=== PATIENT | male | born 1955 | race Caucasian/White ===

== ENCOUNTER 2018-08-15 06:42 | Day surgery (SDC) | payer OTHER, SELFPAY ==
[2018-08-15] VITALS (7 sets, daily range): BP systolic 106–149; BP diastolic 72–92; PULSE 48–54; RESP 12–16; TEMP 36.3–36.9; O2SAT 94–99; BMI 34.0
[2018-08-15] MEDS: LACTATED RINGERS 1,000 ML 42 ML IV (07:25)
--- NOTE | 2018-08-15 07:27 | PM.HP.1 ---
History of Present Illness Date Patient Seen: 08/15/18 Time Patient Seen: 07:27 Chief complaint: OPEN UMBILICAL HERNIA [id number] Narrative: 62-year-old male seen June 28, 2018 for symptomatic umbilical mass consistent with hernia. Mass remains unchanged since that evaluation. He is once again seen and examined today in the preoperative area. Continues to have difficulty with protruding mass at the umbilicus especially with strenuous activity. Lesion will spontaneously reduce when he is resting and in a supine position. He gives no history of incarceration at any time. Continues to have difficulty with his activities of daily living due to the pain and discomfort related to the mass. No nausea, vomiting, fever, chills, abdominal pain elsewhere, dysuria, hematuria, or difficulties with bowel function. Patient History Family & Social History Social History: household members spouse Tobacco & Substance use: Smoking Status Never smoker alcohol intake current Meds Home Medications Medication Instructions Recorded Confirmed Type aspirin 81 mg PO QDAY #0 11/22/12 08/15/18 History atenolol 75 mg PO QDAY #0 11/22/12 08/15/18 History fluoxetine [Prozac] 20 mg PO QDAY #0 11/22/12 08/15/18 History losartan 100 mg PO QDAY #0 11/22/12 08/15/18 History amlodipine 10 mg tablet 10 mg PO DAILY 06/28/18 08/15/18 History multivitamin with minerals-folic 1 tab PO DAILY tab 06/28/18 08/15/18 History acid 0.4 mg tablet Allergies Allergy/AdvReac Type Severity Reaction Status Date / Time Penicillins Allergy Unknown Hives Verified 08/15/18 06:59 Review of Systems Review of Systems All systems reviewed & are unremarkable except as noted in HPI and below Exam Vital Signs (past 8 hours): - 08/15/18 07:17 Temperature 97.6 F Pulse Rate 50 L Respiratory Rate 16 Blood Pressure 149/92 H Pulse Oximetry 94 Oxygen Delivery Method Room Air Narrative Exam Narrative: Well-nourished well-developed moderately obese male in no acute distress. Alert oriented x3 Sclera nonicteric Chest clear to auscultation. Regular rate and rhythm. No crackles or wheezes. Abdomen is obese but soft and nondistended. Nontender. Reducible umbilical hernia is again demonstrated. No ascites. No hepatomegaly. Extremities show no clubbing or cyanosis Objective Labs Labs: No new laboratory or radiographic studies for review Assessment & Plan Assessment & Plan narrative: 62-year-old male with symptomatic reducible umbilical hernia. Reiterated recommendation for open umbilical hernia repair, possibly with mesh. Technical details again reviewed. Risks, benefits, alternatives also discussed once again at as previously documented. Consent is on the chart. Otherwise his history and physical examination has not changed since his initial evaluation of June 28, 2018. We will proceed today with open umbilical hernia repair as planned. All questions were answered to his satisfaction, and he voiced understanding.
--- NOTE | 2018-08-15 07:29 | PM.PREOP ---
Pre-operative Note Interval Note History & Physical reviewed/Exam performed by Physician: Yes Changes to H&P: No H&P completed within 30 days and has changed as indicated here:: Patient seen and examined again today. History and physical examination from June 28, 2018 updated and placed on the chart. Obviously no changes within the last hour. Proceed today with umbilical hernia repair as planned
[2018-08-15] MEDS: CEFAZOLIN 2 GM/100 ML FROZ.PIGGY IV (07:32)
--- NOTE | 2018-08-15 07:55 | SUR.OPER ---
Supine on padded OR bed, head on pillow, arms secured on padded arm boards at <90 degrees abduction, legs uncrossed, safety belt at thigh, tape over blanket over lower legs.
[2018-08-15] MEDS: LIDOCAINE 1% W/EPI INJ 20 ML INJ (08:05)
[2018-08-15] MEDS: BUPIVACAINE 0.5% (PF) VIAL 30 ML INJ (08:05)
--- NOTE | 2018-08-15 08:42 | P.OP_ITS ---
Operative Date/Time/Diagnoses Date of procedure: 08/15/18 Time of procedure: 08:38 Pre-op diagnosis: Symptomatic umbilical hernia Post-op diagnosis: same Procedure & Clinicians Procedure: Open umbilical hernia repair with primary closure Same procedure as scheduled: Yes Indications: 62-year-old male who presented with symptomatic umbilical hernia. Open repair possibly with mesh was recommended. Surgeon: Jose Maurer Click Yes if Unassisted: Yes Anesthesia Type: General Operative Notes Findings: 1. Umbilical hernia measuring no more than 1 cm in greatest dimension with minimal amount of incarcerated preperitoneal fat subsequently reduced 2. Adequate primary closure of the umbilical hernia defect using 2 individual 0 Ethibond sutures Closure Type: primary Specimen(s): none sent Prosthetic devices, grafts, tissues, transplants, or devices: None Estimated Blood Loss (mL): 5 Blood products transfused: none Procedure in detail: After obtaining informed consent the patient was brought to the operating room placed supine on the table. After satisfactory induction of anesthesia the abdomen was prepped and draped in usual sterile fashion. SCOAP time out was performed per standard protocol. Curvilinear incision was designed along the inferior aspect of the umbilicus then infiltrated with a 1-1 mixture 1% lidocaine with 1: 100,000 epinephrine and 0.5% plain Marcaine for postoperative analgesia. Skin incision was created with 15 scalpel blade. Sharp dissection using Metzenbaum scissors was employed to carry the dissection through the subcutaneous tissue to the rectus fascia. Bovie was used to achieve hemostasis. Hernia sac was then encircled with a hemostat and the umbilical skin was reflected off the hernia sac sharply with Metzenbaum scissors. A Weitlaner retractor was used to provide exposure. Hernia sac was dissected away sharply with Metzenbaum scissors and discarded. Bovie was used to achieve hemostasis taking great care to avoid injury to abdominal structures. Preper itoneal fat was then reduced and the hernia defect was fully visualized. There were no satellite hernias. Given the small size of the defect mesh was not indicated. Therefore the defect was closed with 2 individual 0 Ethibond sutures. Wound was irrigated and noted to be hemostatic. Umbilical skin was closed in a concave fashion with a single 3 0 Vicryl suture. Subcutaneous tissue was reapproximated with interrupted 3 0 Vicryl suture. Skin was closed with running 4 0 Monocryl suture in a subcuticular fashion. Dermal adhesive was applied. Anesthesia was reversed and patient extubated in the operating room. He was taken recovery in stable condition. Complications: none Condition: stable Disposition: PACU Plan for aftercare: 1. Discharge home 2. Follow up in surgery Clinic in 2 weeks
[2018-08-15] MEDS: OXYCODONE/ACETAMINOPHEN 5/325 TABLET 1 TAB PO (08:49)
--- NOTE | 2018-08-15 09:15 | SUR.PHASEII ---
0915 AO, stable, no dizziness, lightedness, nausea. Stable on feet. ice pack home with patient. Resp unlabored, skin warm and dry.
== END 2018-08-15 09:15 | disposition home or self-care (01) ==
PROVIDERS: Family Provider Family Medicine; PCP Family Medicine; Visit Provider Surgery
PROC: (CPT 49585; principal; 2018-08-15 07:45)
DX: K42.0 Umbilical hernia with obstruction, without gangrene (principal)
CPT/HCPCS: 49585; J0690; J1100; J2250; J2704; J3010

== ENCOUNTER → 2018-11-09 10:18 | Outpatient (CLI) | payer OTHER, SELFPAY ==
--- NOTE | 2018-11-09 | DI.RAD.S_ITS ---
PROCEDURE: XR FOOT LT MIN 3V INDICATIONS: Left foot pain TECHNIQUE: 3 views of the foot were acquired. COMPARISON: None. FINDINGS: Bones: No fractures or dislocations but there is an unusually large lateral sesamoid bone beneath the lateral border of the first metatarsal head. This measures up to 2.6 cm in longitudinal dimension. Also on the oblique view is an exostosis projecting laterally and inferiorly from the lateral aspect of the base of the first proximal phalanx. Degenerative osteoarthritis at the first MTP joint is present. Note is made of what appears to be an old avulsion fragment or unusual accessory ossicle measuring 6 mm in maximal dimension adjacent to the lateral base of the second proximal phalanx. No suspicious bony lesions that would indicate presence of acute trauma. Soft tissues: No tibiotalar joint effusion. Achilles tendon appears normal. IMPRESSION: Osseous findings as discussed above but no acute trauma. Incidental mode is also made of a moderate-sized plantar fascial insertion spur at the posterior calcaneus. Dictated by: Eze Jones M.D. on 11/09/2018 at 10:56 Approved by: Eze Jones M.D. on 11/09/2018 at 11:00
== END ==
PROVIDERS: PCP Family Medicine; Visit Provider Family Medicine
DX: M79.672 Pain in left foot (principal); M19.072 Primary osteoarthritis, left ankle and foot; M77.32 Calcaneal spur, left foot
CPT/HCPCS: 73630

== ENCOUNTER → 2020-02-19 08:18 | Outpatient (CLI) | payer OTHER, SELFPAY ==
--- NOTE | 2020-02-19 | DI.RAD.S_ITS ---
PROCEDURE: XR CHEST 2V INDICATIONS: CHRONIC COUGH TECHNIQUE: 2 views of the chest were acquired. COMPARISON: [facility], CT, THORAX WITHOUT CONTRAST, 06/04/2013, 9:51. [facility], CR, CHEST 2 VIEW, 01/15/2014, 11:11. [facility], CR, CHEST 2 VIEW, 09/19/2013, 6:59. FINDINGS: Surgical changes and devices: ACDF. Lungs and pleura: Lungs are clear. No pleural effusions or pneumothorax. Mediastinum: Mediastinal contours are normal. Heart size is normal. Bones and chest wall: No suspicious bony abnormalities. Soft tissues appear unremarkable. IMPRESSION: No acute cardiopulmonary abnormality. Dictated by: Brandin Still M.D. on 02/19/2020 at 8:18 Approved by: Brandin Still M.D. on 02/19/2020 at 8:19
== END ==
PROVIDERS: PCP Family Medicine; Referring Provider Family Medicine; Visit Provider Family Medicine
DX: R05 Cough (principal)
CPT/HCPCS: 71046

== ENCOUNTER → 2020-02-19 08:25 | Outpatient (CLI) | payer OTHER, SELFPAY ==
[2020-02-20 10:34] LABS: COVID19 Sendout Not Detected (Not Detect)
== END ==
PROVIDERS: PCP Family Medicine; Visit Provider Nurse Practitioner
DX: Z11.59 Encounter for screening for other viral diseases (principal)
CPT/HCPCS: 87635

== ENCOUNTER → 2020-02-20 10:04 | Outpatient (CLI) | payer OTHER, SELFPAY ==
--- NOTE | 2020-02-20 10:05 | DI.CT.S_ITS ---
PROCEDURE: CT SINUS SCREEN WO CON INDICATIONS: Sinusitis TECHNIQUE: Noncontrast 3.0 mm axial images acquired from the frontal sinuses to the mid-sella, with coronal and sagittal reformats. For radiation dose reduction, the following was used: automated exposure control, adjustment of mA and/or kV according to patient size. COMPARISON: None. FINDINGS: Image quality: Excellent. Maxillary Sinuses: No bony remodeling or destruction. Left maxillary sinus retention cyst. Sinuses are otherwise clear. Ethmoid Air Cells: No bony remodeling or destruction. Sinuses are clear. Sphenoid Sinuses: No bony remodeling or destruction. Sinuses are clear. Frontal Sinuses: No bony remodeling or destruction. Sinuses are clear. Ostiomeatal Complexes: Ostiomeatal complexes are patent. No Larisa cells. Miscellaneous: Visualized intra-orbital contents are normal. No brannon bullosa. There is paradoxical curvature of the bilateral middle turbinates.. No nasal septal deviation. IMPRESSION: 1. Left maxillary sinus retention cyst. Mild right maxillary sinus mucosal thickening. 2. Paradoxical curvature of the middle turbinates bilaterally. Dictated by: James Verdin M.D. on 02/20/2020 at 10:22 Approved by: James Verdin M.D. on 02/20/2020 at 10:23
== END ==
PROVIDERS: PCP Family Medicine; Referring Provider Family Medicine; Visit Provider Family Medicine
DX: J32.9 Chronic sinusitis, unspecified (principal); J34.1 Cyst and mucocele of nose and nasal sinus
CPT/HCPCS: 70486

== ENCOUNTER 2020-02-22 12:35 | Day surgery (SDC) | payer OTHER, SELFPAY ==
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
--- NOTE | 2020-02-22 11:40 | PM.OP.ENDO ---
Operative Date/Time/Diagnoses Date of procedure: 02/22/20 Procedure Notes SCOAP/Timeout: 13:40 Procedure in detail: ENDOSCOPIST: Natlaya Bass MD Sedation RN: Shae Cameron RN Sedation start time: 3:41 p.m. Sedation end time: 3:57 p.m. PROCEDURE: Colonoscopy INDICATIONS: 1. Family history of cancer 2. History of bright red bleeding per rectum 3. History of hemorrhoids 4. Screening for colon cancer MEDICATION: Levsin 0.125 mg sublingual, incremental doses of Versed and fentanyl until appropriate level sedation achieved. ASA CLASS: 2 CECAL WITHDRAWAL TIME: 8 minutes COMPLICATIONS: None. EXTENT OF PROCEDURE: Cecum. QUALITY OF PREP: Good with portions of liquid stool. PROCEDURE: Prior to insertion of the colonoscope, a digital rectal examination was accomplished with circumferential palpation of the distal rectal mucosa without significant findings being noted. The high-definition colonoscope was passed into the rectum in the usual fashion and advanced over to the cecum without difficulty. The ileocecal valve, appendiceal stoma, and medial wall all could be inspected and no abnormalities were seen. ASCENDING COLON: As the colonoscope was withdrawn, care was taken to expose and inspect the haustral folds and no abnormalities were seen. HEPATIC FLEXURE: Normal, no polyps, diverticula or other abnormalities. TRANSVERSE COLON: Normal, no polyps, diverticula or other abnormalities. DESCENDING COLON: Normal, no polyps, diverticula or other abnormalities. SIGMOID COLON: Normal, no polyps, diverticula or other abnormalities. RECTUM: Normal. J maneuver was produced. There was no significant perianal disease. The J maneuver was broken. The remainder of the rectum was inspected and there was external hemorrhoid disease. The scope was withdrawn. IMPRESSION: 1. Normal colonoscopy 2. External hemorrhoids PLAN: 1. Repeat colonoscopy in 10 years. The possibility of a missed lesion including a malignancy has been discussed with the patient previously. Potential alarm symptoms have been discussed and should be reported immediately.
[2020-02-22] MEDS: HYOSCYAMINE 0.125 MG TABLET PO (12:49)
[2020-02-22] MEDS: LACTATED RINGERS 1,000 ML 200 ML IV (12:49)
[2020-02-22 12:56] VITALS: BP 153/92; PULSE 65; RESP 16; TEMP 36.5; O2SAT 99; BMI 33.4
[2020-02-22] MEDS: fentaNYL 250 MCG/5 ML INJ IV (13:41)
[2020-02-22] MEDS: MIDAZOLAM 5 MG/5 ML VIAL IV ×3 (13:41→13:44)
[2020-02-22 14:05] VITALS: BP 129/95; PULSE 78; RESP 15; TEMP 36.6; O2SAT 94
[2020-02-22 14:10] VITALS: BP 138/97; PULSE 65; RESP 16; O2SAT 11
[2020-02-22 14:15] VITALS: BP 136/93; PULSE 66; RESP 15; O2SAT 95
--- NOTE | 2020-02-22 14:15 | SUR.PHASEI ---
pt transferred to [facility]. pt in stable condition, marguerite.
--- NOTE | 2020-02-22 14:16 | SUR.PHASEI ---
Assumed care of pt from Marielle Valdes RN. pt awake and alert eating crackers. Denies any complaints and denies any nausea.
[2020-02-22 14:19] VITALS: BP 131/96; PULSE 62; RESP 12; O2SAT 95
[2020-02-22 14:21] VITALS: BP 114/79; PULSE 60; RESP 14; TEMP 35.7; O2SAT 94
== END 2020-02-22 14:35 | disposition home or self-care (01) ==
PROVIDERS: PCP Family Medicine; Referring Provider Family Medicine; Visit Provider Student in an Organized Health Care Education/Training Program
PROC: 0DJD8ZZ Inspection of Lower Intestinal Tract, Via Natural or Artificial Opening Endoscopic (ICD-10-PCS; CPT 45378; principal; 2020-02-22 13:45)
DX: Z12.11 Encounter for screening for malignant neoplasm of colon (principal); I10 Essential (primary) hypertension; F32.9 Major depressive disorder, single episode, unspecified; E78.5 Hyperlipidemia, unspecified
CPT/HCPCS: 45378; J2250; J3010

== ENCOUNTER → 2020-08-28 17:02 | Outpatient (CLI) | payer OTHER, SELFPAY ==
[2020-08-28] MEDS: COVID-19 VACC, Ad26(JANSSEN)/PF 0.5 ML IM (17:20)
== END ==
PROVIDERS: PCP Family Medicine; Visit Provider Internal Medicine
DX: Z23 Encounter for immunization (principal)
CPT/HCPCS: 0031A; 91303

== ENCOUNTER → 2020-11-25 10:16 | Outpatient (CLI) | payer OTHER, SELFPAY ==
--- NOTE | 2020-11-25 10:18 | DI.RAD.S_ITS ---
PROCEDURE: XR CERVICAL SPINE 4V OR 5V INDICATIONS: NECK PAIN WITH RADICULOPATHY TECHNIQUE: 5 views of the cervical spine were acquired. COMPARISON: [facility], CR, XR CHEST 2V, 02/19/2020, 8:17. CT, THORAX WITHOUT CONTRAST, 06/04/2013, 9:51. FINDINGS: Bones: No fractures or dislocations to the T1 level. No suspicious bony lesions. There is normal range of motion between flexion and extension, with preserved normal bony alignment. Anterior C5 through C7 fusion plate showing no evidence of device loosening or disruption. Soft tissues: Prevertebral soft tissues are normal in thickness. IMPRESSION: No evidence of instability during flexion and extension imaging, prior C5 through C7 anterior fusion plate appears stable over time. Dictated by: Eze Jones M.D. on 11/25/2020 at 12:32 Approved by: Eze Jones M.D. on 11/25/2020 at 12:34
--- NOTE | 2020-11-25 10:18 | DI.RAD.S_ITS ---
PROCEDURE: XR THORACIC SPINE 2V INDICATIONS: NECK PAIN WITH RADICULOPATHY TECHNIQUE: 2 views of the thoracic spine were acquired. COMPARISON: None. FINDINGS: Bones: No fractures or dislocations. No suspicious bony lesions. Twelve pairs of ribs are noted, and appear intact where visualized. Mild degenerative disc height reduction along the middle and lower thirds of the thoracic spine. Soft tissues: No paravertebral stripe thickening. IMPRESSION: No trauma found, no acute disease. Mild degenerative disc height reduction along the middle and lower thirds of the thoracic spine. Dictated by: Eze Jones M.D. on 11/25/2020 at 10:58 Approved by: Eze Jones M.D. on 11/25/2020 at 10:59
== END ==
PROVIDERS: PCP Family Medicine; Referring Provider Family Medicine; Visit Provider Family Medicine
DX: M54.12 Radiculopathy, cervical region (principal); M51.34 Other intervertebral disc degeneration, thoracic region
CPT/HCPCS: 72050; 72070

== ENCOUNTER → 2021-12-17 13:02 | Outpatient (CLI) | payer OTHER, SELFPAY ==
--- NOTE | 2021-12-17 | DI.CT.S_ITS ---
PROCEDURE: CT CHEST W CON INDICATIONS: Chronic cough TECHNIQUE: After the administration of intravenous contrast, 5 mm thick sections acquired from the pulmonary apices to the posterior costophrenic angles. 1 mm axial lung, 5 mm thick coronal and sagittal reformats and 7 mm axial MIP were acquired. For radiation dose reduction, the following was used: automated exposure control, adjustment of mA and/or kV according to patient size. COMPARISON: [facility], CT, THORAX WITHOUT CONTRAST, 06/04/2013, 9:51. FINDINGS: Image quality: Excellent. Lungs and pleura: No acute air space opacities. There is linear platelike scarring in the left lower lobe likely secondary to a pneumonia seen on prior CT in 2012. No pleural effusions or pneumothorax. Central and peripheral airways are patent and normal in caliber. Mediastinum: Heart size is normal. No pericardial effusion. No mediastinal or hilar adenopathy by size criteria. Thoracic aorta and central pulmonary arteries are normal in size. Esophagus is normal in caliber. No hiatal hernia. Bones and chest wall: No suspicious bony lesions. No vertebral body compression fractures. No axillary or supraclavicular adenopathy by size criteria. Thyroid gland is normal. Abdomen: The liver is heterogenous. There are hypodensities which demonstrate density consistent with cysts measuring 4.0 cm in the right lobe and 2.4 and 1.8 cm in the left lobe. There is a 4.4 centimeter apparent mass in the right renal fossa, however it is possible this could be the top of the right kidney but is incompletely visualized. IMPRESSION: 1. No acute abnormality of the chest. 2. Platelike scarring in the left lower lobe. 3. Hepatic hypodensities are likely cysts. 4. Possible mass in the right renal fossa which appears to be a mass, however could possibly be the top of the right kidney. No prior imaging is available for comparison. Recommend CT of the abdomen and pelvis for further evaluation of these abnormalities. Dictated by: Dinesh Gonzalez M.D. on 12/17/2021 at 16:49 Approved by: Dinesh Gonzalez M.D. on 12/17/2021 at 17:00
[2021-12-17 13:28] LABS: BUN Creatinine Ratio 15.7 (6-22); Blood Urea Nitrogen 17 mg/dL (9-20); Estimated Glomerular Filt Rate > 60 mL/min (>60)
== END ==
PROVIDERS: PCP Family Medicine; Referring Provider Family Medicine; Visit Provider Family Medicine
DX: J98.4 Other disorders of lung (principal); R05.3 Chronic cough
CPT/HCPCS: 36415; 71260; 82565; 84520; Q9967

== ENCOUNTER → 2021-12-29 10:05 | Outpatient (CLI) | payer OTHER, SELFPAY ==
--- NOTE | 2021-12-29 10:13 | DI.CT.S_ITS ---
PROCEDURE: CT ABDOMEN PELVIS W CON INDICATIONS: MASS/DISORDER OF KIDNEY AND URETER TECHNIQUE: After the administration of oral and intravenous contrast, axial sections were acquired from the lung bases to the pubic symphysis. Coronal and sagittal reformats were performed. For radiation dose reduction, the following was used: automated exposure control, adjustment of mA and/or kV according to patient size. COMPARISON:[facility], CT, CT CHEST W CON, 12/17/2021, 13:39. FINDINGS: Image quality: Excellent. Lung bases: No pleural effusion. ABDOMEN: Liver: A few small cysts are present within the liver. There are also a few small hypodensities that are too small to characterize but which could represent additional cysts or hemangiomata. Gallbladder: No radiopaque gallstones. Biliary ducts: Unremarkable. Pancreas: Unremarkable. Spleen: Unremarkable. Adrenal Glands: Unremarkable. Kidneys and Ureters: Redemonstrated mass arising from the upper right kidney measuring approximately 4.6 x 4.3 by 4.3 cm (series 2, image 40 and series 5, image 63). The mass may encroach upon the renal sinus fat (series 4, image 44). No hydronephrosis. Stomach and Bowel: No evidence of mechanical small bowel obstruction. Peritoneum: No abnormal intraperitoneal fluid. No free air. Abdominal Nodes: No retroperitoneal or mesenteric adenopathy by size criteria. Vessels: Aorta and inferior vena cava are normal in size. No evidence of right renal vein tumor thrombus. PELVIS: Pelvic Organs: Unremarkable. Bladder: Unremarkable. Pelvic Nodes: No enlarged lymph nodes. Bones: Multilevel degenerative change of the visualized spine. IMPRESSION: 1. A 4.6 cm mass is present arising from the upper right kidney suspicious for neoplasm such as renal cell carcinoma. Urology consultation may be helpful to direct further management. 2. No definite evidence of metastatic disease identified within the abdomen or pelvis. Dictated by: Margarito Liz M.D. on 12/29/2021 at 13:20 Approved by: Margarito Liz M.D. on 12/29/2021 at 13:37
== END ==
PROVIDERS: PCP Family Medicine; Referring Provider Family Medicine; Visit Provider Family Medicine
DX: N28.89 Other specified disorders of kidney and ureter (principal); K76.89 Other specified diseases of liver
CPT/HCPCS: 74177

== ENCOUNTER → 2022-09-29 08:57 | Outpatient (CLI) | payer OTHER, SELFPAY ==
--- NOTE | 2022-09-29 09:07 | DI.RAD.S_ITS ---
PROCEDURE: XR SHOULDER RT MIN 2V INDICATIONS: BILATERAL SHOULDER PAIN TECHNIQUE: 3 views of the shoulder were acquired. COMPARISON: None. FINDINGS: Bones: No fractures or dislocations. No suspicious bony lesions. [id number] acromioclavicular and glenohumeral joint degeneration. Visualized ribs appear intact. Soft tissues: No suspicious soft tissue calcifications. IMPRESSION: [id number] degenerative joint disease. Dictated by: Rudy Robles M.D. on 09/29/2022 at 20:30 Approved by: Rudy Robles M.D. on 09/29/2022 at 20:30
--- NOTE | 2022-09-29 09:07 | DI.RAD.S_ITS ---
PROCEDURE: XR SHOULDER LT MIN 2V INDICATIONS: BILATERAL SHOULDER PAIN TECHNIQUE: 3 views of the shoulder were acquired. COMPARISON: None. FINDINGS: Bones: No fractures or dislocations. No suspicious bony lesions. Visualized ribs appear intact. Acromioclavicular joint space narrowing with associated osteophytosis. Soft tissues: No suspicious soft tissue calcifications. IMPRESSION: Mild acromioclavicular osteoarthritis. Dictated by: Caleb Jay M.D. on 09/29/2022 at 10:22 Approved by: Caleb Jay M.D. on 09/29/2022 at 10:22
--- NOTE | 2022-09-29 09:07 | DI.RAD.S_ITS ---
PROCEDURE: XR FOOT RT MIN 3V INDICATIONS: RIGHT FOOT PAIN TECHNIQUE: 3 views of the foot were acquired. COMPARISON: None. FINDINGS: Bones: No fractures or dislocations. No suspicious bony lesions. Moderate osteoarthritic changes in ankle and foot, most pronounced at the 1st metatarsophalangeal joint. Calcaneal spurring. Soft tissues: No tibiotalar joint effusion. Achilles tendon appears normal. IMPRESSION: 1. Moderate osteoarthritic changes, most pronounced at the 1st metatarsophalangeal joint. 2. Calcaneal spurring. Dictated by: Rudy Robles M.D. on 09/29/2022 at 20:31 Approved by: Rudy Robles M.D. on 09/30/2022 at 7:59
== END ==
PROVIDERS: PCP Family Medicine; Referring Provider Family Medicine; Visit Provider Family Medicine
DX: M19.012 Primary osteoarthritis, left shoulder (principal); M77.31 Calcaneal spur, right foot; M19.011 Primary osteoarthritis, right shoulder; M79.671 Pain in right foot; M25.512 Pain in left shoulder; M25.511 Pain in right shoulder
CPT/HCPCS: 73030; 73630

== ENCOUNTER 2022-10-06 06:55 | Emergency (ER) | payer OTHER, SELFPAY ==
[2022-10-06] VITALS (15 sets, daily range): BP systolic 173–219; BP diastolic 93–113; PULSE 55–75; RESP 10–26; TEMP 36.5; O2SAT 92–100; BMI 34.4
--- NOTE | 2022-10-06 07:13 | DI.CT.S_ITS ---
PROCEDURE: CT STROKE INDICATIONS: vision impairment TECHNIQUE: Noncontrast 4.5 mm thick angled axial sections acquired from the foramen magnum to the vertex, with coronal reformats. For radiation dose reduction, the following was used: automated exposure control, adjustment of mA and/or kV according to patient size. COMPARISON: None. FINDINGS: Image quality: Excellent. CSF spaces: Basal cisterns are patent. No extra-axial fluid collections. There is some mass effect on the occipital horn and temporal horn of the right lateral ventricle from parenchymal hematoma. Ventricles are otherwise normal in size. There is no midline shift. Brain: There is a large intraparenchymal hematoma involving the right parietal lobe which measures 2.0 x 2.5 x 7.0 cm. There is associated surrounding vasogenic edema. There is some associated subarachnoid blood. Skull and face: Calvarium and visualized facial bones are intact, without suspicious lesions. Sinuses: Visualized sinuses and mastoids are clear. IMPRESSION: 1. Large intraparenchymal hematoma in the right temporal lobe with associated vasogenic edema and some mass effect on the right lateral ventricle without midline shift. There is associated subarachnoid blood, as well. Comment: Final report is concordant with preliminary interpretation provided by [facility]. Findings were discussed by the initial interpreting radiologist with the emergency room physician on 10/06/2022 at 0740 hours. This study fulfills neurological imaging criteria for inclusion or exclusion of acute stroke therapies based on available published neurological imaging guidelines. Dictated by: Nicho Khan M.D. on 10/06/2022 at 7:50 Approved by: Nicho Khan M.D. on 10/06/2022 at 7:55
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
[2022-10-06] MEDS: SODIUM CHLORIDE 0.9% 1,000 ML 1000 ML IV (07:22)
[2022-10-06 07:30] LABS: Add Manual Diff / Slide Review NO; Basophils Absolute Auto 100 /uL (0-100); Basophils Percent Auto 1.2 % (0-2); Eosinophils Absolute Auto 500 /uL (0-450); Eosinophils Percent Auto 5.4 % (2-4); Hematocrit 44.9 % (41-53); Hemoglobin 15.8 g/dL (13.5-17.5); Lymphocytes Absolute Auto 2200 /uL (1100-4500); Lymphocytes Percent Auto 25.5 % (25-40); Mean Corpuscular HGB Conc 35.1 % (30-36); Mean Corpuscular Hemoglobin 33.2 PG (26-34); Mean Corpuscular Volume 94.5 fL (80-100); Monocytes Absolute Auto 500 /uL (0-900); Monocytes Percent Auto 6.2 % (3-14); Neutrophils Absolute Auto 5300 /uL (1500-7000); Neutrophils Percent Auto 61.7 % (50-75); Platelet Count 211 X10^3/uL (150-400); Red Blood Cell Count 4.76 X10^6/uL (4.5-5.9); Red Cell Distribution Width 12.5 % (11.6-14.8); White Blood Cell Count 8.7 X10^3/uL (4.5-11.0)
[2022-10-06 07:37] LABS: INR 1.1 (0.9-1.3); Prothrombin Time 12.1 SECONDS (10.1-12.7)
[2022-10-06 07:39] LABS: PTT Partial Thromboplastin Tim 32 SECONDS (26-36)
[2022-10-06 07:41] LABS: Alanine Aminotransferase 34 IU/L (<50); Albumin Globulin Ratio 1.2 (1.0-2.8); Alkaline Phosphatase 62 U/L (38-126); Aspartate Aminotransferase 35 IU/L (17-59); BUN Creatinine Ratio 13.6 (6-22); Blood Urea Nitrogen 14 mg/dL (9-20); Carbon Dioxide 23 mmol/L (22-32); Chloride 105 mmol/L (98-107); Creatine Kinase 168 U/L (55-170); Estimated Glomerular Filt Rate > 60 mL/min (>60); Globulin 3.3 g/dL (1.7-4.1); Glucose 168 mg/dL (80-110); HEMOLYSIS < 15 (0-50); Sodium 136 mmol/L (137-145); Total Protein 7.3 g/dL (6.3-8.2)
[2022-10-06 07:45] LABS: COVID19 -Nasal RAPID Negative (Negative)
[2022-10-06 07:53] LABS: Troponin I < 0.012 ng/mL (0.01-0.034)
[2022-10-06] MEDS: ONDANSETRON 4 MG/2 ML INJ IV (07:53)
[2022-10-06] MEDS: MORPHINE 4 MG/ML INJ IV (07:54)
[2022-10-06 07:56] LABS: CKMB % Relative Index 2.9 % (1.5-5.0); Creatine Kinase MB 4.92 ng/mL (<2.37)
[2022-10-06] MEDS: NICARDIPINE 25 MG in SODIUM CHLORIDE 0.9% 240 ML 50 MG IV (07:59)
[2022-10-06] MEDS: fentaNYL 100 MCG/2 ML INJ 50 MCG IV (08:25)
--- NOTE | 2022-10-06 08:33 | PC.NURSE ---
I was directly involved with all charting and medication administrations including titrations, charted by Bharti. [facility]. Nicardipine drip continued with flight team.
== END 2022-10-06 08:30 | disposition short-term general hospital (02) ==
PROVIDERS: Emergency Provider Emergency Medicine; PCP Family Medicine
DX: I63.9 Cerebral infarction, unspecified (principal); I62.9 Nontraumatic intracranial hemorrhage, unspecified; R29.702 NIHSS score 2; Z20.822 Contact with and (suspected) exposure to COVID-19
CPT/HCPCS: 36415; 70450; 80053; 82550; 82553; 84484; 85025; 85610; 85730; 87635; 93005; 93010; 96365; 96375; 99285; 99291; C9803; J2270; J2405; J3010

== ENCOUNTER → 2022-11-09 18:02 | Outpatient (CLI) | payer OTHER, SELFPAY ==
--- NOTE | 2022-11-09 | DI.RAD.S_ITS ---
PROCEDURE: XR ELBOW RT MIN 3V INDICATIONS: rt elbow pain TECHNIQUE: 3 views of the elbow were acquired. COMPARISON: None. FINDINGS: Bones: No displaced fracture. No dislocation. A hyperdensity is seen adjacent to the radial head on lateral view. Soft tissues: No significant joint effusion. IMPRESSION: Hyperdensity is seen adjacent to the radial head on lateral view, which could represent artifact from overlapping structures or a loose body. No acute radiographic abnormality otherwise. If there is high concern for further derangement, consider CT or MRI evaluation. Dictated by: Gamaliel Cosme M.D. on 11/10/2022 at 14:52 Approved by: Gamaliel Cosme M.D. on 11/10/2022 at 14:54
== END ==
PROVIDERS: PCP Family Medicine; Referring Provider Family Medicine; Visit Provider Family Medicine
DX: M25.521 Pain in right elbow (principal)
CPT/HCPCS: 73080

== ENCOUNTER → 2022-11-19 09:11 | Outpatient (CLI) | payer OTHER, SELFPAY ==
--- NOTE | 2022-11-19 | DI.MRI.S_ITS ---
PROCEDURE: MR HEAD/BRAIN WO/W CON INDICATIONS: Nontraumatic intracerebral hemorrhage TECHNIQUE: Noncontrast axial T1 spin echo, axial T2 fast spin echo, sagittal and axial FLAIR, coronal T2 fast spin echo, axial gradient echo, axial diffusion and ADC through the brain. After the administration of contrast, axial and coronal and sagittal 3D VIBE or T1 spin echo with fat saturation through the brain. COMPARISON: [facility], CT, CT STROKE, 10/06/2022, 7:17. FINDINGS: Image quality: Excellent. CSF Spaces: Basal cisterns are patent. No extra-axial fluid collections. Ventricles are normal in size and shape. Brain: In the right temporal lobe, sequelae of large ovoid hemorrhage is similar in size to the prior exam, and shows appropriate evolution of blood products. No surrounding edema or midline shift. Subarachnoid hemorrhage has resolved. No abnormal enhancement. Otherwise, no evidence of parenchymal restricted diffusion to suggest acute infarct. No extra-axial fluid collections. Appropriate vascular flow voids noted. Skull and face: Calvarial marrow is normal in signal. Orbits appear normal. Sinuses: Small left maxillary sinus retention cyst IMPRESSION: Appropriate evolution of previous large right temporal hemorrhage without focal enhancement. Consider 4 to 6 month follow-up Approved by: Koffi Mooney M.D. on 11/19/2022 at 12:48
== END ==
PROVIDERS: PCP Family Medicine; Referring Provider Family Medicine; Visit Provider Family Medicine
DX: I61.9 Nontraumatic intracerebral hemorrhage, unspecified (principal)
CPT/HCPCS: 70553; A9579

== ENCOUNTER → 2022-12-10 15:05 | Outpatient (CLI) | payer OTHER, SELFPAY ==
--- NOTE | 2022-12-10 | DI.MRI.S_ITS ---
PROCEDURE: MR ELBOW RT WO CON INDICATIONS: Pain in right elbow TECHNIQUE: Noncontrast coronal proton density fast spin echo and T2 fast spin echo with fat saturation, axial and sagittal T1 spin echo and T2 fast spin echo with fat saturation through the elbow. COMPARISON: None. FINDINGS: Image quality: Excellent. Lateral structures: The lateral ulnar collateral ligament and radial collateral ligament both appear thickened. The overlying common extensor tendon also appears thickened with intrasubstance T2 hyperintense signal and surrounding soft tissue edema at its insertion on lateral epicondyle. Medial structures: The ulnar collateral ligament appears intact. The overlying common flexor tendon appears normal. The ulnar nerve appears normal in size and signal within the cubital tunnel. Anterior structures: The biceps and brachialis tendons both appear intact as they insert onto the proximal radius and ulna, respectively. No bicipitoradial bursal fluid. The median and radial neurovascular bundles appear normal; no focal muscle atrophy to suggest nerve impingement. Posterior structures: The conjoint triceps tendon from the long and lateral heads appears intact. The medial head of the triceps tendon also appears normal, with direct muscle insertion onto the olecranon. Lobulated fluid collection involving soft tissue over dorsal aspect of proximal olecranon is seen and measures up to 1.6 x 6 x 8.1 cm in largest transverse, AP and craniocaudal dimensions and contains thin internal septations. Bone and cartilage: No bone marrow contusions or fractures. No osteochondral injuries. IMPRESSION: 1. 1.6 x 6 x 8.1 cm slightly complex appearing fluid collection over dorsal aspect of elbow joint posterior to distal triceps tendon and proximal olecranon likely represent olecranon bursitis versus organizing soft tissue hematoma. Clinical correlation and follow-up is recommended. 2. Suggestion of lateral epicondylitis with tendinosis and low to moderate grade partial-thickness tear involving common extensor tendon origin and underlying radial collateral ligament sprain. 3. No acute fracture or dislocation. No marrow edema. No gross osteochondral injuries. Dictated by: Jhonathan Fernandes M.D. on 12/10/2022 at 16:40 Approved by: Jhonathan Fernandes M.D. on 12/10/2022 at 16:45
== END ==
PROVIDERS: PCP Family Medicine; Referring Provider Family Medicine; Visit Provider Family Medicine
DX: M25.521 Pain in right elbow (principal)
CPT/HCPCS: 73221

== ENCOUNTER 2023-08-18 14:37 | Emergency (ER) | payer MEDICARE, OTHER, SELFPAY ==
[2023-08-18] VITALS (10 sets, daily range): BP systolic 157–160; BP diastolic 87–96; PULSE 68–84; RESP 15; TEMP 36.8; O2SAT 95–100; BMI 33.7
[2023-08-18] MEDS: ONDANSETRON 4 MG/2 ML INJ IV (15:54)
[2023-08-18] MEDS: SODIUM CHLORIDE 0.9% 1,000 ML 1000 ML IV (16:10)
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
[2023-08-18 17:14] LABS: Bacteria Urine Occasional (0-1); RBC Urine 0-1/HPF (0-5/HPF); Squamous Epithelial Cell Urine 0-1 /HPF (0-5/HPF); Urine Volume 10mL (spun); WBC Urine 0-1/HPF (0-5/HPF)
[2023-08-18 17:15] LABS: Culture Indicated Urine Specimen Cultured
[2023-08-18 17:20] LABS: Add Manual Diff / Slide Review NO; Basophils Absolute Auto 100 /uL (0-100); Basophils Percent Auto 0.8 % (0-2); Eosinophils Absolute Auto 0 /uL (0-450); Eosinophils Percent Auto 0.2 % (2-4); Hematocrit 42.7 % (41-53); Hemoglobin 15.1 g/dL (13.5-17.5); Lymphocytes Absolute Auto 2200 /uL (1100-4500); Lymphocytes Percent Auto 14.1 % (25-40); Mean Corpuscular HGB Conc 35.3 % (30-36); Mean Corpuscular Hemoglobin 32.7 PG (26-34); Mean Corpuscular Volume 92.7 fL (80-100); Monocytes Absolute Auto 1400 /uL (0-900); Monocytes Percent Auto 8.9 % (3-14); Neutrophils Absolute Auto 12000 /uL (1500-7000); Platelet Count 267 X10^3/uL (150-400); Red Cell Distribution Width 12.3 % (11.6-14.8); White Blood Cell Count 15.8 X10^3/uL (4.5-11.0)
[2023-08-18 17:31] LABS: Alanine Aminotransferase 30 IU/L (<50); Albumin 4.3 g/dL (3.5-5.0); Albumin Globulin Ratio 1.3 (1.0-2.8); Alkaline Phosphatase 50 U/L (38-126); Aspartate Aminotransferase 41 IU/L (17-59); BUN Creatinine Ratio 14.4 (6-22); Bilirubin Total 1.4 mg/dL (0.2-1.3); Blood Urea Nitrogen 16 mg/dL (9-20); Calcium 9.4 mg/dL (8.4-10.2); Carbon Dioxide 25 mmol/L (22-32); Chloride 101 mmol/L (98-107); Estimated Glomerular Filt Rate > 60 mL/min (>60); Ethanol (ETOH) < 10 mg/dL; Globulin 3.2 g/dL (1.7-4.1); Glucose 122 mg/dL (80-110); HEMOLYSIS < 15 (0-50); Lipase 90 U/L (23-300); Potassium 3.3 mmol/L (3.4-5.1); Sodium 132 mmol/L (137-145); Total Protein 7.5 g/dL (6.3-8.2)
--- NOTE | 2023-08-18 17:35 | DI.US.S_ITS ---
PROCEDURE: US ABDOMEN LIMITED INDICATIONS: cholecystitis suspected, vomiting and upper abd pain TECHNIQUE: Real-time scanning was performed of the abdominal and retroperitoneal organs, with image documentation. COMPARISON: None. FINDINGS: Liver: Heterogenous hepatic parenchyma several simple cysts measure up to 3.8 cm Gallbladder: No gallstones. No wall thickening. No pericholecystic edema. Negative sonographic Mandujano's sign. Biliary ducts: Intrahepatic bile ducts are non-dilated. Extrahepatic bile duct caliber measures 6.8 mm. Normal is 6-7 mm or less in diameter, or 10 mm or less post-cholecystectomy. Pancreas: Visualized portions of the pancreas are sonographically normal. Miscellaneous: No free abdominal fluid. IMPRESSION: No evidence of cholecystitis Approved by: Koffi Mooney M.D. on 08/18/2023 at 17:38
[2023-08-18 17:42] LABS: Troponin I 0.012 ng/mL (0.01-0.034)
[2023-08-18] MEDS: LORazepam 0.5 MG TABLET 1 MG PO (18:46)
== END 2023-08-18 19:11 | disposition home or self-care (01) ==
PROVIDERS: Emergency Provider Emergency Medicine; PCP Family Medicine
DX: G47.00 Insomnia, unspecified (principal); R11.2 Nausea with vomiting, unspecified; R10.13 Epigastric pain
CPT/HCPCS: 36415; 76705; 80053; 80320; 81003; 81015; 83690; 84484; 85025; 87086; 93005; 96361; 96374; 99284; J2405

== ENCOUNTER → 2023-10-19 07:59 | Outpatient (CLI) | payer MEDICARE, OTHER, SELFPAY ==
--- NOTE | 2023-10-19 | DI.MRI.S_ITS ---
PROCEDURE: MR STROKE Pre- and post-contrast brain MRI, non-contrast brain MR angiogram, pre- and postcontrast neck MR angiogram INDICATIONS: Nontraumatic intracerebral hemorrhage, unspecified TECHNIQUE: Brain: Noncontrast axial T1 spin echo, axial T2 fast spin echo, sagittal and axial FLAIR, coronal T2 fast spin echo, axial gradient echo, axial diffusion and ADC through the brain. After the administration of contrast, axial 3D VIBE of the cranial vasculature and brain. Brain MRA: Non-contrast 3-D time of flight MR angiogram, with multiple scjtsjy-odnkkhvql-lbeqlizewz (MIP) reformats performed. Neck MRA: Axial and sagittal TruFISP through the neck. Coronal dynamic MR angiogram during administration of contrast in the arterial and venous phases, with 3-dimenstional ewnwera-mflvmdsxu-jvkdgxtrpl (MIP) reformats constructed from subtraction images. COMPARISON: [facility], CT, CT STROKE, 10/06/2022, 7:17. FINDINGS: BRAIN: CSF spaces: Ventricles are normal in size and shape. Basal cisterns are patent. No extra-axial fluid collections. Brain: Cystic encephalomalacia and gliosis noted in the right temporal lobe. Old blood products consistent with prior hemorrhagic infarct. Diffusion sequence unremarkable. Associated volume loss. No abnormal intracranial enhancement. Skull and face: Calvarial marrow signal is normal. Orbits appear normal. Sinuses: Sinuses and mastoids are clear. BRAIN MR ANGIOGRAM: Anterior circulation: Intracranial internal carotid arteries are normal in size and enhancement. The flow within the paired anterior cerebral arteries is normal and symmetric. The flow within the middle cerebral arteries is normal and symmetric. The anterior communicating artery is seen. No stenoses, occlusions, or aneurysms. Posterior circulation: The visualized portions of the vertebral arteries demonstrate normal caliber, and join to form a normal appearing basilar artery. The flow within the posterior cerebral arteries is normal and symmetric. No stenoses, occlusions, or aneurysms. NECK MR ANGIOGRAM: Carotids: Great vessels demonstrate a conventional anatomy as they arise from the aortic arch. The origins of the common carotid arteries appear patent. The calibers and courses of both common carotid arteries are normal. The bifurcation regions appear normal bilaterally. The internal carotid arteries demonstrate normal course and caliber. Posterior circulation: The origins of the vertebral arteries appear patent. More superior portions of both vertebral arteries demonstrate normal course and caliber, and join to form a normal appearing basilar artery. Miscellaneous: Subclavian arteries appear patent. Pre-contrast images through the neck show no soft tissue abnormalities. 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 Unremarkable MR angiogram of the head neck. No evidence of aneurysm, large vessel occlusion or vascular malformation Approved by: Koffi Mooney M.D. on 10/19/2023 at 16:36
== END ==
PROVIDERS: PCP Family Medicine; Referring Provider Family Medicine; Visit Provider Family Medicine
DX: I61.9 Nontraumatic intracerebral hemorrhage, unspecified (principal); G93.89 Other specified disorders of brain
CPT/HCPCS: 70544; 70549; 70553; A9579

== ENCOUNTER → 2024-08-22 10:57 | Outpatient (CLI) | payer MEDICARE, OTHER, SELFPAY ==
--- NOTE | 2024-08-22 11:01 | DI.RAD.S_ITS ---
PROCEDURE: XR HIP W PEL IF DONE BI MIN5V INDICATIONS: BILAT HIP PAIN TECHNIQUE: AP pelvis with lateral view(s) of the both hip(s). COMPARISON: [facility], CT, CT ABDOMEN PELVIS WITH CONTRAST, 08/16/2023, 12:13. FINDINGS: Bones: No fractures or dislocations. Pelvic ring appears intact. No suspicious bony lesions. Lqut-zg-odakgapo bilateral hip DJD. Soft tissues: The visualized bowel gas pattern is normal. No suspicious soft tissue calcifications. IMPRESSION: No acute bony abnormality. Ubhb-dg-mghixwwy bilateral hip DJD. Dictated by: Brandin Still M.D. on 08/23/2024 at 8:03 Approved by: Brandin Still M.D. on 08/23/2024 at 8:05
--- NOTE | 2024-08-22 11:03 | DI.RAD.S_ITS ---
PROCEDURE: XR LUMBAR SPINE 2-3V INDICATIONS: BILAT LEG PAIN TECHNIQUE: 3 views of the lumbar spine were acquired. COMPARISON: [facility], CT, CT ABDOMEN PELVIS WITH CONTRAST, 08/16/2023, 12:13. FINDINGS: Bones: 5 ajm-dhv-swspbav vertebrae are present. Retrolisthesis of L1 on L2 measuring 0.4 cm. Retrolisthesis of L2 on L3 measuring 0.5 cm. Facet joint hypertrophy in the lower lumbar spine. Prominent vertebral body osteophytes. L1, L2 compression fractures which are new compared to 08/16/2023. No suspicious bony lesions. Soft tissues: Prominent loops of small bowel seen on the frontal projection. No suspicious soft tissue calcifications. IMPRESSION: 1. L1 and L2 compression fractures which are new compared to 2023. 2. Prominent loops of small bowel. -Recommend clinical correlation. If indicated CT could be considered for further evaluation. Dictated by: Brandin Still M.D. on 08/23/2024 at 8:05 Approved by: Brandin Still M.D. on 08/23/2024 at 8:08
== END ==
LOC: RAD 10:59
PROVIDERS: PCP Family Medicine; Referring Provider Family Medicine; Visit Provider Family Medicine
DX: M16.0 Bilateral primary osteoarthritis of hip (principal); M48.56XA Collapsed vertebra, not elsewhere classified, lumbar region, initial encounter for fracture; M47.816 Spondylosis without myelopathy or radiculopathy, lumbar region; M25.551 Pain in right hip; M25.552 Pain in left hip; M79.604 Pain in right leg; M79.605 Pain in left leg
CPT/HCPCS: 72100; 73523

== ENCOUNTER → 2024-09-05 12:18 | Outpatient (CLI) | payer MEDICARE, OTHER, SELFPAY ==
--- NOTE | 2024-09-05 12:21 | DI.RAD.S_ITS ---
PROCEDURE: XR CERVICAL SPINE 4V OR 5V INDICATIONS: BACK NECK PAIN TECHNIQUE: 5 views of the cervical spine acquired. COMPARISON: [facility], CR, XR CERVICAL SPINE 4V OR 5V, 11/25/2020, 10:26. FINDINGS: Bones: No fractures or dislocations to the T1 level. Stable appearance of hardware status post C5 through C7 anterior discectomy and fusion. No evidence of hardware complication. Oblique images demonstrate no bony foraminal stenoses. Soft tissues: No prevertebral soft tissue swelling. IMPRESSION: No evidence of acute osseous abnormality or hardware complication. Dictated by: Mino Marshall M.D. on 09/06/2024 at 4:27 Approved by: Mino Marshall M.D. on 09/06/2024 at 4:28
--- NOTE | 2024-09-05 12:21 | DI.RAD.S_ITS ---
PROCEDURE: XR THORACIC SPINE 3V INDICATIONS: BACK NECK PAIN TECHNIQUE: 3 views of the thoracic spine were acquired. COMPARISON: [facility], CR, XR THORACIC SPINE 2V, 11/25/2020, 10:26. FINDINGS: Bones: There is a new subacute appearing compression fracture of the L1 vertebral body resulting in approximately 50% height loss anteriorly. Multilevel anterior osteophytosis otherwise noted throughout the thoracic spine. No suspicious bony lesions. 12 pairs of ribs are noted, and appear intact where visualized. Soft tissues: No paravertebral stripe thickening. IMPRESSION: New subacute appearing L1 compression fracture. Degenerative changes otherwise noted within the thoracic spine. Dictated by: Mino Marshall M.D. on 09/06/2024 at 4:28 Approved by: Mino Marshall M.D. on 09/06/2024 at 4:30
== END ==
PROVIDERS: PCP Family Medicine; Referring Provider Family Medicine; Visit Provider Family Medicine
DX: M54.9 Dorsalgia, unspecified (principal); M54.2 Cervicalgia; M48.54XA Collapsed vertebra, not elsewhere classified, thoracic region, initial encounter for fracture
CPT/HCPCS: 72050; 72072

== ENCOUNTER → 2024-09-13 09:43 | Outpatient (CLI) | payer MEDICARE, OTHER, SELFPAY ==
--- NOTE | 2024-09-13 09:44 | DI.RAD.S_ITS ---
PROCEDURE: XR DEXA AXIAL SKELETON INDICATIONS: WEDGE COMPRESSION FX FIRST LUMBAR VERTEBRA COMPARISON: None. FINDINGS: Lumbar Spine (L1 and L2 excluded due to increased density): Bone mineral density 0.834 g/cm2, T score -2.4, osteopenia. Left Femoral Neck: Bone mineral density 0.606 g/cm2, T score -2.2. Left Hip: Bone mineral density 0.798 g/cm2, T score -1.2, osteopenia. Fracture Risk Calculation (when applicable): Prior fracture and alcohol use noted. 10-year fracture risk of a major osteoporotic fracture 17 percent and of a hip fracture 5.7 percent. (T score greater or equal to -1.0 to: NORMAL) (T score from -1.1 to -2.4: OSTEOPENIA) (T score less than or equal to -2.5: OSTEOPOROSIS) IMPRESSION: Osteopenia. Follow-up guidelines as follows: Osteoporosis: Consider a repeat DEXA and Vertebral Fracture Assessment (VFA) exam in 2 years or sooner if medically necessary, to reassess this patient's status. Osteopenia: Consider a repeat DEXA in 2-3 years to reassess this patient's status, or if there is a new clinical indication. Normal: Consider a repeat DEXA in 5 years or sooner, or if there is a new clinical indication. All treatment decisions require clinical judgment and consideration of individual patient factors, including patient preferences, comorbidities, previous drug use, risk factors not captured in the FRAX model (e.g., frailty, falls, vitamin D deficiency, increased bone turnover, interval significant decline in bone density ) and possible under- or over-estimation of fracture risk by FRAX. In addition, the NOF Guide recommends that FDA-approved medical therapies be considered in postmenopausal women and men age >= 50 years with a: * Hip or vertebral (clinical or morphometric) fracture * T-score of <=-2.5 at the spine or hip * Ten-year fracture probability by FRAX of >= 3% for hip fracture or >=20% for major osteoporotic fracture. Dictated by: Caleb Jay M.D. on 09/13/2024 at 12:20 Approved by: Caleb Jay M.D. on 09/13/2024 at 12:21
== END ==
PROVIDERS: PCP Family Medicine; Referring Provider Family Medicine; Visit Provider Family Medicine
DX: M85.89 Other specified disorders of bone density and structure, multiple sites (principal); S32.010A Wedge compression fracture of first lumbar vertebra, initial encounter for closed fracture
CPT/HCPCS: 77080

== ENCOUNTER → 2024-11-21 09:34 | Outpatient (CLI) | payer MEDICARE, OTHER, SELFPAY ==
--- NOTE | 2024-11-21 09:36 | DI.RAD.S_ITS ---
PROCEDURE: XR LUMBAR SPINE MIN 4V INDICATIONS: Lumbago with sciatica TECHNIQUE: 5 views of the lumbar spine acquired, including flexion and extension views. COMPARISON: [facility], , XR LUMBAR SPINE 2-3V, 08/22/2024, 11:02. FINDINGS: Lumbar spine curvature and alignment: Slight rightward curve is unchanged. There is 5 mm of L1 and L2 retrolisthesis Bones: Severe L1 and moderate L2 compression fractures are stable. Mild T10-11 12 compression fractures also unchanged. Disc spaces: Mild T10-11 through L1-2 and moderate L4-5 degenerative disc disease noted. There is moderate left L4-5 L5-S1 degenerative facet disease. Soft tissues: No soft tissue swelling, calcification or mass. IMPRESSION: Chronic findings as described. No change from exam 3 months ago Dictated by: Arun Michel M.D. on 11/22/2024 at 12:46 Approved by: Arun Michel M.D. on 11/22/2024 at 12:48
== END ==
PROVIDERS: PCP Family Medicine; Referring Provider Family Medicine; Visit Provider Family Medicine
DX: M51.16 Intervertebral disc disorders with radiculopathy, lumbar region (principal); M47.26 Other spondylosis with radiculopathy, lumbar region; M47.27 Other spondylosis with radiculopathy, lumbosacral region; M43.16 Spondylolisthesis, lumbar region; M51.34 Other intervertebral disc degeneration, thoracic region; M48.56XA Collapsed vertebra, not elsewhere classified, lumbar region, initial encounter for fracture; M48.54XA Collapsed vertebra, not elsewhere classified, thoracic region, initial encounter for fracture
CPT/HCPCS: 72110

== ENCOUNTER → 2025-06-06 11:51 | Outpatient (CLI) | payer MEDICARE, OTHER, SELFPAY ==
[2025-06-06 14:05] LABS: Add Manual Diff / Slide Review NO; Hematocrit 44.3 % (41-53); Hemoglobin 15.9 g/dL (13.5-17.5); Lymphocytes Absolute Auto 2000 /uL (1100-4500); Mean Corpuscular HGB Conc 35.9 % (30-36); Mean Corpuscular Hemoglobin 35.0 PG (26-34); Mean Corpuscular Volume 97.7 fL (80-100); Platelet Count 287 X10^3/uL (150-400)
[2025-06-06 14:24] LABS: Alanine Aminotransferase 32 IU/L (<50); Albumin 4.0 g/dL (3.5-5.0); Albumin Globulin Ratio 1.3 (1.0-2.8); Alkaline Phosphatase 78 U/L (38-126); Blood Urea Nitrogen 16 mg/dL (9-20); Calcium 9.0 mg/dL (8.4-10.2); Carbon Dioxide 22 mmol/L (22-32); Chloride 104 mmol/L (98-107); Estimated Glomerular Filt Rate > 60 mL/min (>60); Globulin 3.2 g/dL (1.7-4.1); Glucose 100 mg/dL (70-99); HEMOLYSIS < 15 (0-50); Potassium 4.4 mmol/L (3.4-5.1); Sodium 137 mmol/L (137-145); Total Protein 7.2 g/dL (6.3-8.2)
== END ==
PROVIDERS: PCP Family Medicine; Referring Provider Dermatology; Visit Provider Dermatology
DX: Z51.81 Encounter for therapeutic drug level monitoring (principal); I10 Essential (primary) hypertension; L21.8 Other seborrheic dermatitis; Z79.899 Other long term (current) drug therapy
CPT/HCPCS: 36415; 80053; 85025; 85651; 86038; 86140